=== PATIENT | male | born 1960 | race Caucasian/White ===

== ENCOUNTER 2017-06-14 21:56 | Inpatient (IN) | payer OTHER ==
[~2017-06-14] VITALS: Ht 182.9 cm; Wt 97.3 kg
[2017-06-14] MEDS: REMOVE OLD LIDOCAINE PATCH T-DERMAL SCH (09:00)
[~2017-06-14 21:56] MED LIST: LISI10TA; [UNRECOGNIZED DRUG - OTHER]
[2017-06-14 21:59] VITALS: BP 190/106; PULSE 84; RESP 18; TEMP 98.2; O2SAT 100
[2017-06-14 22:29] VITALS: BP 178/95; PULSE 87; RESP 17; O2SAT 97
[2017-06-14] MEDS ORDERED: ASPI1TAB57 PO (22:29)
[2017-06-14] MEDS ORDERED: NITR1SUB3 SL (22:29)
[2017-06-14] MEDS ORDERED: ATOR20TA15 PO (22:29)
[2017-06-14] MEDS ORDERED: NRDRIP SQ (22:29)
[2017-06-14] MEDS ORDERED: GLIP10TA6 PO (22:29)
--- NOTE | 2017-06-14 23:11 | PD ---
HPI Chief Complaint: Fall Time Seen by Provider: 22:54 Travel History International Travel<30 days: No Contact w/Intl Traveler<30days: No Traveled to known affect area: No History of Present Illness HPI 56yo M with PMH of HTN, DM presents to the ED with c/o left rib pain s/p fall off a forklift around 2.5 feet high. Pt said he was at working at around 2pm and was sitting on it and when he went to get off it, fell on his left side. Denies any head trauma, LOC. Associated with sob and pain that is worst with movement or deep breathing. Also with some left sided chest pain after the fall. Denies any fever, n/v, abdominal pain, focal weakness or numbness. PFSH Past Medical History Cardiovascular Problems: Yes (HTN) High Cholesterol: Yes Diabetes: Yes Patient Takes Glucophage: No Diminished Hearing: No Hypertension: Yes Tetanus Vaccination: Unknown Social History Alcohol Use: Yes (BEER A MONTH) Tobacco Use: No Substance Use: No Allergies-Medications (Allergen,Severity, Reaction): Coded Allergies: penicillin G (Unverified Allergy, Mild, ALL KINDS OF STUFF, 06/14/17) Reported Meds & Prescriptions Reported Meds & Active Scripts Active Reported Nitroglycerin SL (Nitroglycerin) 0.4 Mg Subl 0.4 Mg SL DIRECTED PRN ONE TABLET UNDER THE TONGUE NEEDED FOR CHEST PAIN, MAY REPEAT EVERY FIVE MINUTES FOR A TOTAL OF 3 DOSES OR CALL 911 IF NO RELIEF Aspirin 81 (Aspirin) 81 Mg Tabdr 81 Mg PO DAILY Novolin R Inj (Insulin Human Regular) 100 Unit/Ml Inj 70 SQ Atorvastatin (Atorvastatin Calcium) 20 Mg Tab 20 Mg PO HS Glipizide 10 Mg Tab 10 Mg PO BIDAC Take 30 minutes before a meal [Chelestrol] Lisinopril/Hctz 10 mg/12.5 mg 10 mg/12.5 mg Tab Review of Systems Except as stated in HPI: all other systems reviewed are Neg Physical Exam Narrative GENERAL: 56yo M in mild distress. SKIN: Focused skin assessment warm/dry. HEAD: Atraumatic. Normocephalic. EYES: Pupils equal and round. No scleral icterus. No injection or drainage. ENT: No nasal bleeding or discharge. Mucous membranes pink and moist. NECK: Trachea midline. No JVD. CARDIOVASCULAR: Regular rate and rhythm. No murmur appreciated. RESPIRATORY: No accessory muscle use. Clear to auscultation. Breath sounds equal bilaterally. O2 sat 98% on RA. GASTROINTESTINAL: Abdomen soft, non-tender, nondistended. MUSCULOSKELETAL: +TTP left anterior axillary ribs 3,4,5. NEUROLOGICAL: Awake and alert. No obvious cranial nerve deficits. Motor grossly within normal limits. Normal speech. PSYCHIATRIC: Appropriate mood and affect; insight and judgment normal. Data Data Last Documented VS Vital Signs Date Time Temp Pulse Resp B/P (MAP) Pulse Ox O2 Delivery O2 Flow Rate FiO2 06/14/17 22:29 87 17 178/95 (122) 97 Room Air 06/14/17 21:59 98.2 Orders Orders Ribs, Uni (W/Exp Cxr-Min 3vw) (06/14/17 ) Complete Blood Count With Diff (06/14/17 23:02) Basic Metabolic Panel (Bmp) (06/14/17 23:02) Prothrombin Time / Inr (Pt) (06/14/17 23:02) Act Partial Throm Time (Ptt) (06/14/17 23:02) Troponin I (06/14/17 23:02) Electrocardiogram (06/14/17 ) Lidocaine 5% Patch.12 Hr (Lidoderm 5% Pa (06/15/17 00:15) Morphine Inj (Morphine Inj) (06/15/17 00:15) Admit Order (Ed Use Only) (06/15/17 02:42) Labs Laboratory Tests Test 06/14/17 23:25 White Blood Count 13.2 TH/MM3 Red Blood Count 4.53 MIL/MM3 Hemoglobin 14.6 GM/DL Hematocrit 41.6 % Mean Corpuscular Volume 91.9 FL Mean Corpuscular Hemoglobin 32.2 PG Mean Corpuscular Hemoglobin Concent 35.1 % Red Cell Distribution Width 12.4 % Platelet Count 279 TH/MM3 Mean Platelet Volume 7.3 FL Neutrophils (%) (Auto) 78.1 % Lymphocytes (%) (Auto) 14.2 % Monocytes (%) (Auto) 6.2 % Eosinophils (%) (Auto) 0.9 % Basophils (%) (Auto) 0.6 % Neutrophils # (Auto) 10.3 TH/MM3 Lymphocytes # (Auto) 1.9 TH/MM3 Monocytes # (Auto) 0.8 TH/MM3 Eosinophils # (Auto) 0.1 TH/MM3 Basophils # (Auto) 0.1 TH/MM3 CBC Comment DIFF FINAL Differential Comment Prothrombin Time 10.5 SEC Prothromb Time International Ratio 1.0 RATIO Activated Partial Thromboplast Time 25.7 SEC Blood Urea Nitrogen 18 MG/DL Creatinine 1.16 MG/DL Random Glucose 302 MG/DL Calcium Level 8.5 MG/DL Sodium Level 136 MEQ/L Potassium Level 4.0 MEQ/L Chloride Level 104 MEQ/L Carbon Dioxide Level 23.4 MEQ/L Anion Gap 9 MEQ/L Estimat Glomerular Filtration Rate 65 ML/MIN Troponin I LESS THAN 0.02 NG/ML MDM Medical Decision Making Medical Screen Exam Complete: Yes Emergency Medical Condition: Yes Interpretation(s) EKG: NSR 87bpm. LAD. No ST segment elevation or depression. Differential Diagnosis Rib fracture vs. pneumothorax vs. rib contusion vs. ACS vs. musculoskeletal pain Narrative Course 56yo M with left rib pain and sob after falling off a forklift about 2.5 feet high. Said he also started having left sided chest pain after the fall which seems atypical and more musculoskeletal and associated with the fall. Will do EKG, labs, CXR with xray left ribs. Pt reevaluated at bedside and said does not really feel sob anymore and is saturating at 98% on RA but is in a lot of pain. Pain is worst with movement. Labs reviewed, WBC 13.2. Troponin negative. Glucose elevated at 302. No increased anion gap. Xray left rib/chest showed left 10th, fifth and possible sixth rib fractures. Deformity of left seventh rib. It is difficult to determine with if acute or chronic. Mild left pleural effusion. Pt given morphine and lidoderm patch but still in a lot of pain. Incentive spirometer ordered. Discussed with Dr. Eldridge and accepted to his service. Insulin sliding scale ordered. Diagnosis Primary Impression: Multiple rib fractures Qualified Codes: S22.42XA - Multiple fractures of ribs, left side, initial encounter for closed fracture Admitting Information Admitting Physician Requests: Bernadine Palomares DO Jun 14, 2017 23:11
[2017-06-14 23:48] LABS: AUTOMATED NEUTROPHIL # 10.3 TH/MM3 (1.8-7.7); BASOPHIL # 0.1 TH/MM3 (0-0.2); BASOPHIL % 0.6 % (0.0-2.0); EOSINOPHIL # 0.1 TH/MM3 (0-0.4); EOSINOPHIL % 0.9 % (0.0-4.0); HEMATOCRIT 41.6 % (39.0-51.0); HEMOGLOBIN 14.6 GM/DL (13.0-17.0); LYMPH % 14.2 % (9.0-44.0); LYMPHOCYTE # 1.9 TH/MM3 (1.0-4.8); MEAN CELL VOLUME 91.9 FL (80.0-100.0); MEAN CORPUSCULAR HEMOGLOBIN 32.2 PG (27.0-34.0); MEAN CORPUSCULAR HGB CONC 35.1 % (32.0-36.0); MEAN PLATELET VOLUME 7.3 FL (7.0-11.0); MONO % 6.2 % (0.0-8.0); MONOCYTE # 0.8 TH/MM3 (0-0.9); NEUT % 78.1 % (16.0-70.0); PLATELET COUNT 279 TH/MM3 (150-450); RED BLOOD COUNT 4.53 MIL/MM3 (4.50-5.90); RED CELL DISTRIBUTION WIDTH 12.4 % (11.6-17.2); WHITE BLOOD COUNT 13.2 TH/MM3 (4.0-11.0)
--- NOTE | 2017-06-14 23:53 | RADRPT ---
EXAM DATE/TIME: 06/14/2017 23:15 [facility] COMPARISON: No previous studies available for comparison. INDICATIONS : Left flank rib pain from trauma sustained in a fall. MEDICAL HISTORY : None. SURGICAL HISTORY : None. ENCOUNTER: Initial ACUITY: 1 day PAIN SCORE: 10/10 LOCATION: Left flank FINDINGS: Multiple views of the left ribs were performed. There is a definite acute left 10th rib fracture jus t proximal to the costochondral margin. There also appears to be acute fracturing at the left fifth a nd possible sixth ribs. There is a deformity seen at the lateral seventh left rib. It is difficult to determine with acute or chronic. Expiratory view of the chest is negative for pneumothorax. The mediastinal structures are midline. T here is a mild left pleural effusion. The lungs are grossly clear. CONCLUSION: 1. Left 10th, fifth and possible sixth rib fractures. 2. Deformity of the left seventh rib. It is difficult to determine with acute or chronic. 3. Mild left pleural effusion. Yuri Wang MD on June 14, 2017 at 23:47 Board Certified Radiologist. This report was verified electronically.
[2017-06-15] VITALS (9 sets, daily range): BP systolic 140–174; BP diastolic 70–97; PULSE 59–86; RESP 17–22; TEMP 96.7–98.7; O2SAT 94–98
[2017-06-15 00:09] LABS: BICARBONATE 23.4 MEQ/L (21.0-32.0); BLOOD UREA NITROGEN 18 MG/DL (7-18); CALCIUM 8.5 MG/DL (8.5-10.1); CHLORIDE 104 MEQ/L (98-107); CREATININE 1.16 MG/DL (0.60-1.30); GLOMERULAR FILTRATION RATE 65 ML/MIN (>89); GLUCOSE,RANDOM 302 MG/DL (74-106); SODIUM (NA) 136 MEQ/L (136-145)
[2017-06-15 00:12] LABS: TROPONIN I LESS THAN 0.02 NG/ML (0.02-0.05)
[2017-06-15] MEDS ORDERED: MORPHINE SULFATE 2 MG/ML INJ IV PUSH ONE (00:15)
[2017-06-15] MEDS ORDERED: LIDOCAINE HCL 5% PATCH T-DERMAL ONE (00:15)
[2017-06-15 00:29] LABS: PROTHROMBIN TIME - PATIENT 10.5 SEC (9.8-11.6)
[2017-06-15] MEDS ORDERED: MORPHINE SULFATE 2 MG/ML INJ IV PUSH PRN (02:45)
[2017-06-15] MEDS ORDERED: GLUCAGON 1 MG/ML VIAL OTHER PRN (02:45)
[2017-06-15] MEDS ORDERED: DEXTROSE 50% IN WATER 50 ML VIAL(D50) IV PUSH PRN (02:45)
[2017-06-15] MEDS ORDERED: oxyCODONE/ACETAMINOPHEN 10 MG/325 MG TAB PO PRN (07:30)
[2017-06-15] MEDS ORDERED: ONDANSETRON HCL 4 MG/2 ML VIAL IV PUSH PRN (07:30)
[2017-06-15] MEDS ORDERED: SODIUM CHLORIDE 0.9% FLUSH 10 ML FLUSH IV FLUSH PRN (07:30)
[2017-06-15] MEDS ORDERED: MAGNESIUM HYDROXIDE SUSP 30 ML CUP PO PRN (07:30)
[2017-06-15] MEDS ORDERED: ENALAPRILAT 1.25 MG/ML VIAL IV PUSH PRN (07:30)
[2017-06-15] MEDS ORDERED: oxyCODONE/ACETAMINOPHEN 5 MG/325 MG TAB PO PRN (07:30)
[2017-06-15] MEDS: INSULIN NovoLIN REGULAR SUPPLEMENTAL SCALE SQ SCH ×4 (07:56→21:54)
--- NOTE | 2017-06-15 08:06 | RADRPT ---
EXAM DATE/TIME: 06/15/2017 07:47 [facility] COMPARISON: RIBS LEFT(W PA CXR MIN 3VWS), June 14, 2017, 23:15. INDICATIONS : Chest trauma; fall yesterday with ribs fractures. MEDICAL HISTORY : None. SURGICAL HISTORY : None. ENCOUNTER: Subsequent ACUITY: 2 days PAIN SCORE: 7/10 LOCATION: Left chest FINDINGS: The right lung is clear. There is mild cardiomegaly. There is a left fifth fracture, and a sided pleu ral effusion suspected. The other previously described fractures are not clearly seen on this study. rib CONCLUSION: Left effusion suspected and left fifth rib fracture. Kj Bella MD on June 15, 2017 at 8:03 Board Certified Radiologist. This report was verified electronically.
[2017-06-15] MEDS: glipiZIDE 10 MG TAB PO SCH ×2 (08:30→14:43)
[2017-06-15] MEDS: DOCUSATE SODIUM 100 MG CAP PO SCH ×2 (09:00→21:36)
[2017-06-15] MEDS: HYDROCHLOROTHIAZIDE 12.5 MG CAP PO SCH (09:00)
--- NOTE | 2017-06-15 11:35 | HHI.PR ---
Subjective Subjective Notes PTD: 1 Pt sitting up on stretcher. No distress noted. "I'm in severe pain." Pt states that it does not hurt when he takes a deep breath. Objective Vitals/I&O Vital Signs Date Time Temp Pulse Resp B/P (MAP) Pulse Ox O2 Delivery O2 Flow Rate FiO2 06/15/17 08:00 97.7 66 22 165/88 (113) 98 06/15/17 05:30 Room Air Labs Laboratory Tests Test 06/14/17 23:25 White Blood Count 13.2 Red Blood Count 4.53 Hemoglobin 14.6 Hematocrit 41.6 Mean Corpuscular Volume 91.9 Mean Corpuscular Hemoglobin 32.2 Mean Corpuscular Hemoglobin Concent 35.1 Red Cell Distribution Width 12.4 Platelet Count 279 Mean Platelet Volume 7.3 Neutrophils (%) (Auto) 78.1 Lymphocytes (%) (Auto) 14.2 Monocytes (%) (Auto) 6.2 Eosinophils (%) (Auto) 0.9 Basophils (%) (Auto) 0.6 Neutrophils # (Auto) 10.3 Lymphocytes # (Auto) 1.9 Monocytes # (Auto) 0.8 Eosinophils # (Auto) 0.1 Basophils # (Auto) 0.1 CBC Comment DIFF FINAL Differential Comment Prothrombin Time 10.5 Prothromb Time International Ratio 1.0 Activated Partial Thromboplast Time 25.7 Blood Urea Nitrogen 18 Creatinine 1.16 Random Glucose 302 Calcium Level 8.5 Sodium Level 136 Potassium Level 4.0 Chloride Level 104 Carbon Dioxide Level 23.4 Anion Gap 9 Estimat Glomerular Filtration Rate 65 Troponin I LESS THAN 0.02 Radiology Last 48 hours Impressions Chest X-Ray 06/15/17 0000 Signed Impressions: Service Date/Time: May 07:47 - CONCLUSION: Left effusion suspected and left fifth rib fracture. Kj Bella MD Ribs X-Ray 06/14/17 0000 Signed Impressions: Service Date/Time: Wednesday, June 14, 2017 23:15 - CONCLUSION: 1. Left 10th, fifth and possible sixth rib fractures. 2. Deformity of the left seventh rib. It is difficult to determine with acute or chronic. 3. Mild left pleural effusion. Yuri Wang MD Narrative Exam GENERAL: This is a 56-year-old male lying on a stretcher. No distress noted. SKIN: Warm and dry. HEAD: Atraumatic. Normocephalic. EYES: PERRLA ENT: No nasal bleeding or discharge. Mucous membranes pink and moist. NECK: Trachea midline. No JVD. CARDIOVASCULAR: Regular rate and rhythm. RESPIRATORY: No accessory muscle use. Lungs are clear to auscultation. Breath sounds equal bilaterally. No distress or dyspnea. GASTROINTESTINAL: BS + x 4 quads. Abdomen soft, non-tender, nondistended. MUSCULOSKELETAL: Extremities without cyanosis, or edema. + peripheral pulses x 4 extremities. Warm with good capillary refill and sensation. MAEW. NEUROLOGICAL: Awake and alert. Normal speech and pattern. A/P Problem List: (1) Multiple rib fractures ICD Codes: S22.49XA - Multiple fractures of ribs, unspecified side, initial encounter for closed fracture Status: Acute Assessment and Plan [place]: This is a 56-year-old male who sustained a fall. Patient fell from a forklift, approximately 2.5 feet. He landed on his left side. INJURIES: LEFT rib fx (5,?6, ?7, 10) PMHX; HTN. DM. Procedures: Consults: Case management. Diet: ADA / heart healthy diet. Tolerating po diet. Encourage good po intake with each meal. Pulmonary: Encourage good pulmonary toileting. IS at bedside and pt encouraged to use. Rationale for use explained to patient, and verbalized understanding. PAIN Management: Oxycodone 5-10 mg q 4h. Dilaudid 1 mg q 34h. Robaxin 500 mg q 8h. Neurontin 3-- mg TID. Lidoderm patch. Motrin 600 mg q 8h. Ofirmev x 24 hrs F/U labs and CXR in the am. Activity: OOB. PT ordered. GI prophylaxis: Pepcid 20 mg BID Bowel regimen: Colace and MOM. LBM: 0 DVT prophylaxis: Mechanical VTE with SCDs. Chemical management with TBD. DC Planning: Case management consulted for assistance with final discharge disposition. Plan for DC in 1-2 days once pain is controlled. Emotional support provided to patient at bedside and plan of care discussed. Discussed with RN at bedside. Discussed pt condition and plan of care with collaborating trauma surgeon. Patient is hemodynamically stable and being managed on the med/surg floor. The trauma team will round each day, and evaluate plan of care on a daily basis. LEFT rib fx (5,?6, ?7, 10) O2 as needed Aggressive pulmonary toileting Pain management CXR f/ u in the am PT ordered Encourage OOB HTN DM ADA / heart healthy diet Vitals signs q 4 h Resume home medications. Remarks Patient seen and examined with the nurse practitioner, multiple rib fractures, pain control is not adequate, we'll increase his pain regimen with multimodal strategy, follow-up chest x-ray, pulmonary toilet Problem Qualifiers (1) Multiple rib fractures: Qualified Codes: S22.42XA - Multiple fractures of ribs, left side, initial encounter for closed fracture Lucie Shea Jun 15, 2017 11:35 Kim Griffith MD Jun 15, 2017 15:17
[2017-06-15] MEDS ORDERED: HYDROmorphone HCL PF 2 MG/ML VIAL IV PUSH PRN (11:45)
[2017-06-15] MEDS: ACETAMINOPHEN 1000 MG/100 ML 100 ML IV SCH ×2 (12:00→16:40)
[2017-06-15] MEDS: LISINOPRIL 10 MG TAB PO SCH (12:42)
[2017-06-15] MEDS: FAMOTIDINE 20 MG TAB PO SCH ×2 (12:42→21:40)
[2017-06-15] MEDS: GABAPENTIN 300 MG CAP PO SCH ×2 (12:43→16:40)
[2017-06-15] MEDS: IBUPROFEN 600 MG TAB PO SCH ×2 (12:43→16:40)
[2017-06-15] MEDS: METHOCARBAMOL 500 MG TAB PO SCH ×2 (12:44→16:39)
[2017-06-15] MEDS ORDERED: IBUPROFEN 600 MG TAB PO SCH (14:00)
[2017-06-15] MEDS ORDERED: ATORVASTATIN 20 MG TAB PO SCH (21:00)
[2017-06-15] MEDS ORDERED: LIDOCAINE HCL 5% PATCH T-DERMAL SCH (21:00)
--- NOTE | 2017-06-15 22:09 | EKG ---
Date Performed: 06/14/2017 Time Performed: 23:09:06 PTAGE: 56 years EKG: Sinus rhythm BORDERLINE LEFT AXIS DEVIATION INCOMPLETE RIGHT BUNDLE BRANCH BLOCK NONSPECIFIC T-WAVE ABNORMALITY B ORDERLINE ECG NO PREVIOUS TRACING DOCTOR: Patrick Gonzalez Interpretating Date/Time 06/15/2017 22:08:32
[2017-06-16] VITALS (10 sets, daily range): BP systolic 133–153; BP diastolic 71–88; PULSE 50–64; RESP 16–18; TEMP 96.7–96.8; O2SAT 96–98
[2017-06-16] MEDS: ACETAMINOPHEN 1000 MG/100 ML 100 ML IV SCH ×2 (00:19→06:07)
[2017-06-16] MEDS: IBUPROFEN 600 MG TAB PO SCH ×3 (00:20→11:38)
[2017-06-16] MEDS: METHOCARBAMOL 500 MG TAB PO SCH ×2 (00:21→09:08)
--- NOTE | 2017-06-16 05:47 | RADRPT ---
EXAM DATE/TIME: 06/16/2017 04:56 [facility] COMPARISON: RIBS LEFT(W PA CXR MIN 3VWS), June 14, 2017, 23:15. CHEST SINGLE AP, June 15, 2017, 7:47. INDICATIONS : Follow up post multiple rib fractures. MEDICAL HISTORY : None. SURGICAL HISTORY : None. ENCOUNTER: Subsequent ACUITY: 3 days PAIN SCORE: 7/10 LOCATION: Left chest FINDINGS: Mild airspace disease at the left lung base with probable trace left pleural effusion. Nondisplaced l eft-sided rib fractures are not as well-demonstrated on current exam. No significant pneumothorax. Ca rdiomediastinal contours are stable. Remainder of the exam is unchanged. CONCLUSION: 1. Stable mild left lung base airspace disease and likely trace pleural effusion. 2. Nondisplaced left-sided rib fractures not as well-demonstrated on current exam. 3. No pneumothorax or significant interval change. Tay Perkins MD on June 16, 2017 at 5:43 Board Certified Radiologist. This report was verified electronically.
[2017-06-16] MEDS: glipiZIDE 10 MG TAB PO SCH (06:07)
[2017-06-16 06:12] LABS: BASOPHIL % 0.6 % (0.0-2.0); EOSINOPHIL # 0.2 TH/MM3 (0-0.4); EOSINOPHIL % 2.8 % (0.0-4.0); HEMATOCRIT 38.5 % (39.0-51.0); HEMOGLOBIN 13.7 GM/DL (13.0-17.0); LYMPH % 26.3 % (9.0-44.0); LYMPHOCYTE # 2.2 TH/MM3 (1.0-4.8); MEAN CELL VOLUME 91.9 FL (80.0-100.0); MEAN CORPUSCULAR HEMOGLOBIN 32.7 PG (27.0-34.0); MEAN CORPUSCULAR HGB CONC 35.6 % (32.0-36.0); MEAN PLATELET VOLUME 7.4 FL (7.0-11.0); MONO % 10.2 % (0.0-8.0); MONOCYTE # 0.8 TH/MM3 (0-0.9); NEUT % 60.1 % (16.0-70.0); PLATELET COUNT 258 TH/MM3 (150-450); RED BLOOD COUNT 4.19 MIL/MM3 (4.50-5.90); RED CELL DISTRIBUTION WIDTH 12.6 % (11.6-17.2); WHITE BLOOD COUNT 8.3 TH/MM3 (4.0-11.0)
[2017-06-16 06:39] LABS: ALBUMIN 3.3 GM/DL (3.4-5.0); AST (GOT) 13 U/L (15-37); BICARBONATE 23.3 MEQ/L (21.0-32.0); BLOOD UREA NITROGEN 16 MG/DL (7-18); CALCIUM 8.7 MG/DL (8.5-10.1); CHLORIDE 103 MEQ/L (98-107); CREATININE 0.83 MG/DL (0.60-1.30); GLOMERULAR FILTRATION RATE 95 ML/MIN (>89); GLUCOSE,RANDOM 246 MG/DL (74-106); SODIUM (NA) 135 MEQ/L (136-145)
[2017-06-16 06:41] LABS: ALT (GPT) 28 U/L (12-78)
[2017-06-16 06:43] LABS: ALKALINE PHOSPHATASE 52 U/L (45-117); TOTAL BILIRUBIN ADULT 0.4 MG/DL (0.2-1.0); TOTAL PROTEIN 6.9 GM/DL (6.4-8.2)
[2017-06-16] MEDS: DOCUSATE SODIUM 100 MG CAP PO SCH (09:00)
[2017-06-16] MEDS: REMOVE OLD LIDOCAINE PATCH T-DERMAL SCH (09:00)
[2017-06-16] MEDS: GABAPENTIN 300 MG CAP PO SCH ×2 (09:07→11:38)
[2017-06-16] MEDS: LISINOPRIL 10 MG TAB PO SCH (09:07)
[2017-06-16] MEDS: FAMOTIDINE 20 MG TAB PO SCH (09:08)
[2017-06-16] MEDS: HYDROCHLOROTHIAZIDE 12.5 MG CAP PO SCH (09:08)
[2017-06-16] MEDS: INSULIN NovoLIN REGULAR SUPPLEMENTAL SCALE SQ SCH ×2 (09:15→11:46)
[2017-06-16] MEDS ORDERED: NEUR300C PO (11:51)
[2017-06-16] MEDS ORDERED: LIDO1ADH4 T-DERMAL (11:51)
[2017-06-16] MEDS ORDERED: IBUP-232 PO (11:51)
[2017-06-16] MEDS ORDERED: METH500T3 PO (11:51)
[2017-06-16] MEDS ORDERED: PERC5TAB12 PO (11:51)
[2017-06-16] MEDS ORDERED: MAGN30S PO (11:51)
[2017-06-16] MEDS ORDERED: DOCU1CAP39 PO (11:51)
--- NOTE | 2017-06-16 12:38 | HHI.DS ---
Discharge Summary Admission Date Jun 15, 2017 at 07:32 Discharge Date: Jun 16, 2017 Admitting Diagnosis Multiple rib fractures (1) Multiple rib fractures ICD Codes: S22.49XA - Multiple fractures of ribs, unspecified side, initial encounter for closed fracture Status: Acute Brief History Fall. CBC/BMP: 06/16/17 0540 06/16/17 0540 Significant Findings Laboratory Tests Test 06/14/17 23:25 06/16/17 05:40 White Blood Count 13.2 TH/MM3 (4.0-11.0) Neutrophils (%) (Auto) 78.1 % (16.0-70.0) Neutrophils # (Auto) 10.3 TH/MM3 (1.8-7.7) Random Glucose 302 MG/DL (74-106) 246 MG/DL (74-106) Estimat Glomerular Filtration Rate 65 ML/MIN (>89) Troponin I LESS THAN 0.02 NG/ML Red Blood Count 4.19 MIL/MM3 (4.50-5.90) Hematocrit 38.5 % (39.0-51.0) Monocytes (%) (Auto) 10.2 % (0.0-8.0) Albumin 3.3 GM/DL (3.4-5.0) Aspartate Amino Transf (AST/SGOT) 13 U/L (15-37) Sodium Level 135 MEQ/L (136-145) Imaging Last Impressions Chest X-Ray 06/16/17 0600 Signed Impressions: Service Date/Time: Friday, June 16, 2017 04:56 - CONCLUSION: 1. Stable mild left lung base airspace disease and likely trace pleural effusion. 2. Nondisplaced left-sided rib fractures not as well-demonstrated on current exam. 3. No pneumothorax or significant interval change. Tay Perkins MD Ribs X-Ray 06/14/17 0000 Signed Impressions: Service Date/Time: Wednesday, June 14, 2017 23:15 - CONCLUSION: 1. Left 10th, fifth and possible sixth rib fractures. 2. Deformity of the left seventh rib. It is difficult to determine with acute or chronic. 3. Mild left pleural effusion. Yuri Wang MD PE at Discharge GENERAL: This is a 56-year-old male lying on a stretcher. No distress noted. SKIN: Warm and dry. HEAD: Atraumatic. Normocephalic. EYES: PERRLA ENT: No nasal bleeding or discharge. Mucous membranes pink and moist. NECK: Trachea midline. No JVD. CARDIOVASCULAR: Regular rate and rhythm. RESPIRATORY: No accessory muscle use. Lungs are clear to auscultation. Breath sounds equal bilaterally. No distress or dyspnea. GASTROINTESTINAL: BS + x 4 quads. Abdomen soft, non-tender, nondistended. MUSCULOSKELETAL: Extremities without cyanosis, or edema. + peripheral pulses x 4 extremities. Warm with good capillary refill and sensation. MAEW. NEUROLOGICAL: Awake and alert. Normal speech and pattern. Hospital Course PILOT STATION: This is a 56-year-old male who sustained a fall. Patient fell from a forklift, approximately 2.5 feet. He landed on his left side. INJURIES: LEFT rib fx (5,?6, ?7, 10) PMHX; HTN. DM. Procedures: Consults: Case management. The patient is now tolerating a po diet. Eating and drinking well. Pain is being managed well with PO pain medications, and patient is being a provided with a script for pain meds upon discharge. (NO driving while taking narcotic pain medication and no operating heavy machinery enforced to patient.) Pt is having regular bowel movements, and have recommended to patient to continue with stool softeners while taking narcotic pain medications to prevent constipation. Pt has been participating in PT and OT while admitted at [facility] and has been ambulating with their assistance and independently . All follow up appointments have been provided and discussed with the patient. It is recommended that the patient keeps all his follow up appointments for continued recovery. Encouraged pt to continue with IS and Acapella even at home. Patient's condition and plan of care discussed with collaborating trauma surgeon. He is agreeable to plan for discharge today. Therefore, the patient is stable to be safely discharged home from a trauma surgery standpoint. Thank you for allowing us to participate in his care. We wish Stephen the best in his recovery. LEFT rib fx (5,?6, ?7, 10) Aggressive pulmonary toileting - continue at home Pain management - CXR stable PT ordered Encourage OOB HTN DM ADA / heart healthy diet Vitals signs q 4 h Continue home medications. Pt Condition on Discharge: Stable Discharge Disposition: Discharge Home Discharge Instructions DIET: Follow Instructions for: Heart Healthy Diet, Diabetic Diet Activities you can perform: Regular-No Restrictions Activities to Avoid: Driving for 24 hrs, Concussion Sports, Contact Sports, Lifting/Bending, Prolonged Standing, Strenuous Activity, Driving Other Activity Instructions: NO DRIVING WHILE TAKING PAIN NARCOTIC MEDICATIONS NO OPERATING HEAVY MACHINERY WHILE TAKING NARCOTIC PAIN MEDS Remarks was seen and examined the nurse practitioner,pain is well-controlled, c x-ray stable, will discharge home Lucie Shea Jun 16, 2017 12:38 Kim Griffith MD Jun 16, 2017 15:56
== END 2017-06-16 14:18 | disposition home or self-care (01) | DRG 184 ==
LOC: NEPE 21:56 → NEDA 06-15 02:43 → OBSVTOIN 06-15 07:32 → N06B 06-15 13:51
PROVIDERS: ADMIT Surgery; ATTEND Surgery
DX: S22.42XA Multiple fractures of ribs, left side, initial encounter for closed fracture (principal); J90 Pleural effusion, not elsewhere classified; I10 Essential (primary) hypertension; E11.65 Type 2 diabetes mellitus with hyperglycemia; R06.02 Shortness of breath; E78.00 Pure hypercholesterolemia, unspecified; W17.89XA Other fall from one level to another, initial encounter; Z79.4 Long term (current) use of insulin; Y92.69 Other specified industrial and construction area as the place of occurrence of the external cause; Y99.0 Civilian activity done for income or pay
CPT/HCPCS: 71045; 71101; 80048; 80053; 82948; 84484; 85025; 85610; 85730; 93005; 94150; 94667; 94668; 96374; J0131; J2270